=== PATIENT | male | born 1990 | race Caucasian/White ===

== ENCOUNTER 2016-10-15 20:24 | Emergency (ER) | payer OTHER ==
[2016-10-15] MEDS ORDERED: NO MEDICATIONS (20:41)
== END 2016-10-15 21:42 | disposition home or self-care (01) ==
LOC: SED 20:24
DX: L05.01 Pilonidal cyst with abscess (principal); F17.210 Nicotine dependence, cigarettes, uncomplicated
CPT/HCPCS: 10080; 87070; 87205; 99283